=== PATIENT | female | born 1995 | race African-American/Black ===

== ENCOUNTER 2016-07-26 11:49 | Emergency (ER) | payer OTHER, MEDICAID ==
[~2016-07-26] VITALS: Ht 165.1 cm; Wt 80.0 kg
[~2016-07-26 11:49] MED LIST: BIRTH CONTROL PILLS PO; CIPR500T2 PO
[2016-07-26 11:52] VITALS: BP 120/83; PULSE 96; RESP 12; TEMP 98.5; O2SAT 98
--- NOTE | 2016-07-26 12:17 | PD ---
HPI Chief Complaint: Complaint Time Seen by Provider: 12:14 Travel History International Travel<30 days: No Contact w/Intl Traveler<30days: No Traveled to known affect area: No History of Present Illness HPI Patient comes in complaining of possible UTI and yeast infection. Patient states she been having this urinary frequency over the past couple of days as well as having clumpy vaginal discharge mixed in with her menstrual period. Patient denies any abdominal pain, back pain, fevers, nausea, vomiting, , or vaginal itching. Patient denies doing anything for this. PFSH Past Medical History Diminished Hearing: No Immunizations Current: Yes (UTD) ?: Not Menopausal: No : 1 Social History Alcohol Use: Yes (social) Tobacco Use: No Substance Use: No Allergies-Medications (Allergen,Severity, Reaction): Coded Allergies: Ibuprofen (Verified Allergy, Intermediate, Rash, 07/26/16) Reported Meds & Prescriptions Reported Meds & Active Scripts Active Diflucan (Fluconazole) 100 Mg Tab 100 Mg PO ONCE Keflex (Cephalexin) 500 Mg Cap 500 Mg PO Q8H Reported [ Control Pills] 1 Tab PO DAILY Review of Systems Except as stated in HPI: all other systems reviewed are Neg Physical Exam Narrative GENERAL: Well-developed, overly nourished, in no acute distress, and non-ill appearing. SKIN: Warm and dry. HEAD: Atraumatic. Normocephalic. EYES: Pupils equal and round. EOMI. No scleral icterus. No injection or drainage. ENT: No nasal bleeding or discharge. Mucous membranes pink and moist. NECK: Trachea midline. Supple. No nuclear rigidity. CARDIOVASCULAR: Regular rate and rhythm. No murmur appreciated. RESPIRATORY: No accessory muscle use. No respiratory distress. GASTROINTESTINAL: Abdomen soft, non-tender, nondistended. Hepatic and splenic margins not palpable. Normal bowel sounds 4. No pulsatile mass. No CVA tenderness. GENITOURINARY: Normal external genitalia without lesions or erythema. Vaginal vault with scant blood. Cervical os was closed. No cervical motion tenderness. Uterus nontender and nonenlarged. Bilateral adnexa nontender without masses. Exams performed presence of female nurse Hipolito at all times. MUSCULOSKELETAL: No obvious deformities. No clubbing. No cyanosis. No edema. Full range of motion. NEUROLOGICAL: Awake and alert. No obvious cranial nerve deficits. Motor grossly within normal limits. Normal speech. PSYCHIATRIC: Appropriate mood and affect; insight and judgment normal. Data Data Last Documented VS Vital Signs Date Time Temp Pulse Resp B/P Pulse Ox O2 Delivery O2 Flow Rate FiO2 07/26/16 11:52 98.5 96 12 120/83 98 Room Air Orders Gc And Chlamydia Pcr (07/26/16 12:13) Wet Prep Profile (07/26/16 12:13) Urinalysis - C+S If Indicated (07/26/16 12:13) Ed Urine Pregnancytest Poc (07/26/16 12:13) Urine Culture (07/26/16 13:00) Labs Laboratory Tests Test 07/26/16 13:00 Urine Color YELLOW Urine Turbidity HAZY Urine pH 6.0 Urine Specific [place] 1.027 Urine Protein 30 mg/dL Urine Glucose (UA) NEG mg/dL Urine Ketones NEG mg/dL Urine Occult Blood MOD Urine Nitrite NEG Urine Bilirubin NEG Urine Urobilinogen 2.0 MG/DL Urine Leukocyte Esterase LARGE Urine RBC 22 /hpf Urine WBC 32 /hpf Urine Squamous Epithelial 10 /hpf Cells Urine Bacteria MANY /hpf Urine Mucus MANY /lpf Microscopic Urinalysis Comment CULTURE INDICATED Clue Cells (Wet Prep) NONE SEEN Vaginal Trichomonas (Wet Prep) NONE SEEN Vaginal Yeast (Wet Prep) PRESENT MDM Medical Decision Making Medical Screen Exam Complete: Yes Emergency Medical Condition: Yes Differential Diagnosis UTI, STD, yeast infection, other Narrative Course The patient presentation with history and evaluation are consistent with UTI. There is no evidence of pyelonephritis. The patient is tolerating fluids, no fever and no back pain. There is no clinical evidence to suggest atypical cervicitis, PID, appendicitis. The patient was discharged on antibiotics and given warnings to return if condition worsens in any way, fever, vomiting and unable to tolerate medications or fluids, back pain or as needed. The patient was instructed to follow up with their physician. The patient agrees with plan of care. Patient in no obvious distress upon re-evaluation. All pertinent Radiology result(s) discussed with patient. Patient was asked if they wanted to speak to my attending, which the patient did not wish to do at this time. Patient was instructed to follow-up with medical records to receive copies of her STD testing was done in the emergency department. Any questions/concerns in reference to patient diagnosis/condition discussed and clarified prior to patient's discharge. Reinforced sheer importance of close follow up with patient 's primary physician or primary care clinic. Instructed patient to return to ED immediately, if symptoms return/worsen. Pt showed understanding of above instructions. Further instructions and recommendations were detailed in discharge paperwork. Pt ambulated without difficulty out of ED at discharge. Diagnosis Primary Impression: UTI (urinary tract infection) Qualified Code: N39.0 - Urinary tract infection without hematuria, site unspecified Additional Impression: Vaginal candidiasis Patient Instructions: General Instructions, Urinary Tract Infection in Women ( ED) Additional Instructions: Follow-up with your primary care physician and/or helper maintenance cleaning this week for reevaluation. Take all medication as prescribed. Return to the emergency department if symptoms get worse. Med/Other Pt SpecificInfo: Prescription(s) given Scripts Fluconazole (Diflucan)100 Mg Tos537 Mg PO ONCE #1 TAB Ref 0 Prov:Randa Almazan MD 07/26/16 Cephalexin (Keflex)500 Mg Sad803 Mg PO Q8H #10 CAP Ref 0 Prov:Randa Almazan MD 07/26/16 Disposition: 01 DISCHARGE HOME Condition: Stable Holden Bermeo Jul 26, 2016 12:17
[2016-07-26 13:31] LABS: BACTERIA, URINE MANY /hpf; BLOOD, URINE MOD (NEG); GLUCOSE,URINE NEG (NEG); KETONE, URINE NEG (NEG); MUCUS URINE MANY /lpf (OCC); NITRITE,URINE NEG (NEG); SQUAMOUS EPITHELIAL CELL URINE 10 /hpf (0-5); URINE COLOR YELLOW (YELLW/STRAW)
[2016-07-26 13:32] LABS: COMMENT (UR) CULTURE INDICATED; CULTURE IF INDICATED CULTURE INDICATED
[2016-07-26] MEDS ORDERED: CEPH-460 PO (14:12)
[2016-07-26] MEDS ORDERED: DIFL100T PO (14:12)
[2016-07-26 16:12] LABS: CHLAMYDIA PCR NOT DETECTED (NOT DETECT); NEISSERIA PCR NOT DETECTED (NOT DETECT)
== END 2016-07-26 15:20 | disposition home or self-care (01) ==
LOC: NEPB 11:49
DX: N39.0 Urinary tract infection, site not specified (principal); B37.3 Candidiasis of vulva and vagina; B96.89 Other specified bacterial agents as the cause of diseases classified elsewhere
CPT/HCPCS: 81001; 84703; 87086; 87210; 87491; 87591; 99283

== ENCOUNTER 2017-11-14 00:02 | Emergency (ER) | payer MEDICAID, OTHER ==
[~2017-11-14] VITALS: Ht 162.6 cm; Wt 75.0 kg
[~2017-11-14 00:02] MED LIST changes: +CEPH-460 PO; -CIPR500T2 PO; +DIFL100T PO
[2017-11-14 00:15] VITALS: BP 146/91; PULSE 84; RESP 16; TEMP 98.5; O2SAT 99
--- NOTE | 2017-11-14 00:28 | PD ---
HPI Chief Complaint: ENT Complaint Time Seen by Provider: 00:20 Travel History International Travel<30 days: No Contact w/Intl Traveler<30days: No Traveled to known affect area: No History of Present Illness HPI Patient gives a 2 day history of sore throat, nonradiating, 7 out of 10 severity , described as swelling redness and some white-davina looking spots on the back of her throat. Patient reports subjective fevers, and generalized body aches. Patient denies any alleviating or aggravating factors. Patient also denies any associated runny nose, cough, shortness of breath, chest pain, headache, back pain, abdominal pain or flank pain. Allergy to ibuprofen states she develops hives Patient denies any significant past medical or surgical history PFSH Past Medical History Diminished Hearing: No Immunizations Current: Yes (UTD) Seizures: Yes Tetanus Vaccination: Unknown ?: Not LMP: 11/12/2017 Menopausal: No : 1 Past Surgical History Surgical History: No Previous Surgery Social History Alcohol Use: Yes (social) Tobacco Use: No Substance Use: No Allergies-Medications (Allergen,Severity, Reaction): Coded Allergies: ibuprofen (Unverified Allergy, Intermediate, Rash, 11/14/17) Reported Meds & Prescriptions Reported Meds & Active Scripts Active Diflucan (Fluconazole) 100 Mg Tab 100 Mg PO ONCE Keflex (Cephalexin) 500 Mg Cap 500 Mg PO Q8H Reported [ Control Pills] 1 Tab PO DAILY Review of Systems General / Constitutional: No: Fever Eyes: No: Visual changes HENT: Positive: Sore Throat Cardiovascular: No: Chest Pain or Discomfort Respiratory: No: Shortness of Breath Gastrointestinal: No: Abdominal Pain Genitourinary: No: Dysuria Musculoskeletal: No: Pain Skin: No Rash Neurologic: No: Weakness Psychiatric: No: Depression Endocrine: No: Polydipsia Hematologic/Lymphatic: No: Easy Bruising Physical Exam Narrative GENERAL: SKIN: Warm and dry. HEAD: Atraumatic. Normocephalic. EYES: Pupils equal and round. No scleral icterus. No injection or drainage. ENT: No nasal bleeding or discharge. Mucous membranes pink and moist. Oropharynx is erythematous/edematous/and with some white discharge noted, the peritonsillar region is not swollen nor fluctuant. NECK: Trachea midline. No JVD. Bilateral anterior cervical lymphadenopathy noted CARDIOVASCULAR: Regular rate and rhythm. RESPIRATORY: No accessory muscle use. Clear to auscultation. Breath sounds equal bilaterally. GASTROINTESTINAL: Abdomen soft, non-tender, nondistended. Hepatic and splenic margins not palpable. MUSCULOSKELETAL: Extremities without clubbing, cyanosis, or edema. No obvious deformities. NEUROLOGICAL: Awake and alert. No obvious cranial nerve deficits. Motor grossly within normal limits. Five out of 5 muscle strength in the arms and legs. Normal speech. PSYCHIATRIC: Appropriate mood and affect; insight and judgment normal. Data Data Last Documented VS Vital Signs Date Time Temp Pulse Resp B/P (MAP) Pulse Ox O2 Delivery O2 Flow Rate FiO2 11/14/17 00:15 98.5 84 16 146/91 (109) 99 Orders Orders Lidocaine 2% Viscous (Xylocaine 2% Visco (11/14/17 00:30) Amoxicil-Clavulanate (Augmentin) (11/14/17 00:30) [facility] Medical Decision Making Medical Screen Exam Complete: Yes Emergency Medical Condition: Yes Medical Record Reviewed: Yes Differential Diagnosis Pharyngitis versus laryngitis versus peritonsillar abscess Narrative Course Clinically the patient has pharyngitis without any evidence of peritonsillar abscess nor cellulitis. Diagnosis Primary Impression: Pharyngitis Patient Instructions: General Instructions, Pharyngitis (ED) Scripts Penicillin V Potassium (Penicillin V Potassium) 500 Mg Tab 500 MG PO Q8H for Infection for 7 Days, #21 TAB 0 Refills Prov: Osvaldo Batres MD 11/14/17 Lidocaine Viscous Liq (Lidocaine Viscous Liq) 2 % Liqd 5 ML SWISH-SWAL QID Y for PAIN, #180 ML 0 Refills Prov: Osvaldo Batres MD 11/14/17 Disposition: 01 DISCHARGE HOME Condition: Stable Osvaldo Batres MD Nov 14, 2017 00:28
[2017-11-14] MEDS ORDERED: LIDO1SOL8 SWISH-SWAL (00:30)
[2017-11-14] MEDS ORDERED: LIDOCAINE VISCOUS 2% SOLN 15 ML UDC PO ONE (00:30)
[2017-11-14] MEDS ORDERED: AMOXICILLIN/CLAVULANATE K 875 MG TAB PO ONE (00:30)
[2017-11-14] MEDS ORDERED: PENI500T PO (00:30)
== END 2017-11-14 01:39 | disposition home or self-care (01) ==
LOC: NEPE 00:02
DX: J02.9 Acute pharyngitis, unspecified (principal)
CPT/HCPCS: 99283

== ENCOUNTER 2017-11-22 05:08 | Emergency (ER) | payer SELFPAY, OTHER ==
[2017-11-22] MEDS: ACETAMINOPHEN 325 MG TAB PO (06:57)
== END 2017-11-22 09:12 | disposition home or self-care (01) ==
LOC: NEPE 05:08
DX: J06.9 Acute upper respiratory infection, unspecified (principal)
CPT/HCPCS: 87081; 87880; 99283